=== PATIENT | female | born 1980 | race Caucasian/White ===

== ENCOUNTER 2016-05-30 01:47 | Emergency (ER) | payer OTHER ==
[~2016-05-30 01:47] MED LIST: ALBUTEROL17 G1 IH; AMOXICILLIN500 M1 PO; BACTRIM DS TABL1 TAB PO; FLEXERIL PO; IBUPROFEN PO; IRON1 TAB; MACROBID100 MG PO; NAPROSYN-EC500 M1 PO; NAPROXEN PO; NO MEDICATIONS; PRENATAL1 TA1; PRENATAL1 TA1 PO; PYRIDIUM PO; ROBAXIN500 MG PO; VICODIN 5/1 TAB 5/50 PO; VOLTAREN75 MG PO
== END 2016-05-30 02:27 | disposition home or self-care (01) ==
LOC: SED 01:47
DX: O99.613 Diseases of the digestive system complicating pregnancy, third trimester (principal); K02.9 Dental caries, unspecified; O99.333 Smoking (tobacco) complicating pregnancy, third trimester; F17.210 Nicotine dependence, cigarettes, uncomplicated; Z3A.38 38 weeks gestation of pregnancy; Z98.890 Other specified postprocedural states
CPT/HCPCS: 99282; 99283